=== PATIENT | female | born 1990 | race Caucasian/White ===

== ENCOUNTER 2021-08-02 19:31 | Emergency (ER) | payer MEDICAID, OTHER ==
[~2021-08-02] VITALS: Ht 152.4 cm; Wt 104.3 kg
[2021-08-02 20:23] VITALS: BP 143/87
[2021-08-02] MEDS ORDERED: NAP500T GT (22:19)
== END 2021-08-02 22:53 | disposition home or self-care (01) ==
LOC: ER 19:31
DX: M79.672 Pain in left foot (principal)
CPT/HCPCS: 73630